=== PATIENT | male | born 1960 | race Hispanic/Latino ===

== ENCOUNTER → 2017-06-26 | Outpatient (CLI) | payer BC | LOC: OIH 11:23 | PROVIDERS: ATTEND Family Medicine | DX: M47.899 Other spondylosis, site unspecified (principal) | CPT/HCPCS: 71046 ==

== ENCOUNTER → 2017-07-14 | Outpatient (CLI) | payer BC | END | disposition home or self-care (01) | LOC: RAH 08:43 | PROVIDERS: ATTEND Family Medicine | DX: K76.0 Fatty (change of) liver, not elsewhere classified (principal) | CPT/HCPCS: 76705 ==